=== PATIENT | male | born 1960 | race Caucasian/White ===

== ENCOUNTER → 2016-05-16 | Outpatient (REF) | payer OTHER ==
[~2016-05-16] MED LIST: ACAM0.05 PO; BACITAB3 PO; CEFD1CAP8 PO; DOXY-278 PO; FISH1000 PO; FOLI1TAB2 PO; FURO20TA2 PO; GARL10CA2 PO; GLIP5TAB8 PO; GLUC5TAB3 PO; LASI40TA PO; LEVA500T PO; LEVO500T32 PO; LISI-542 PO; LISI10TA4 PO; MAG400TA PO; MAGN400T5 PO; METF-699 PO; METF500T4 PO; MILK140C PO; ONGL1TAB9 PO; OXAZ10CA PO; OXAZ15CA PO; OXYC-517 PO; OXYC15TA76 PO; PANT40TA2 PO; POTA10CA PO; POTA20TA PO; PRED20TA PO; PRED20TAB PO; PROBCAP4 PO; SITA50TAB PO; SPIR100T PO; SPIR25TA2 PO; SPIR50TA2 PO; TRAD5TAB PO; Thiamine Hcl PO; VITATAB11 PO; VITMTA PO; ZOLO50TA PO
[2016-05-16 10:28] LABS: BASO % 0.5 % (0.0-1.0); EOS # 0.3 K/mm3 (0.0-0.50); LYMPH # 1.4 K/mm3 (1.5-4.5); LYMPH % 19.3 % (24.0-44.0); MEAN CORPUSCULAR HEMOGLOBIN 33.6 pg (27.0-33.0); MEAN CORPUSCULAR HGB CONC 33.2 g/dl (32.0-36.5); MEAN CORPUSCULAR VOLUME 101.1 fl (80.0-96.0); MONO # 0.5 K/mm3 (0.0-0.8); MONO % 7.6 % (0.0-5.0); NEUTROPHILS # 4.3 K/mm3 (1.8-7.7); NEUTROPHILS % 66.5 % (36.0-66.0); WHITE BLOOD COUNT 6.5 K/mm3 (4.0-10.0)
[2016-05-16 10:51] LABS: ALBUMIN 3.6 GM/DL (3.2-5.2); ALBUMIN/GLOBULIN RATIO 0.92 (1.00-1.93); ALKALINE PHOSPHATASE 156 U/L (45-117); ALT/SGPT 51 U/L (12-78); ANION GAP 10 MEQ/L (8-16); AST/SGOT 61 U/L (15-37); BILIRUBIN,TOTAL 1.3 MG/DL (0.2-1.0); BLOOD UREA NITROGEN 20 MG/DL (7-18); CARBON DIOXIDE LEVEL 26 MEQ/L (21-32); CHLORIDE LEVEL 106 MEQ/L (98-107); GLOMERULAR FILTRATION RATE > 60.0 (>56); GLUCOSE, FASTING 172 MG/DL (70-105); POTASSIUM SERUM 4.3 MEQ/L (3.5-5.1); SODIUM LEVEL 142 MEQ/L (136-145); TOTAL PROTEIN 7.5 GM/DL (6.4-8.2)
== END ==
LOC: M LABDRAW1 10:07
PROVIDERS: ATTEND Internal Medicine Gastroenterology
DX: K70.10 Alcoholic hepatitis without ascites (principal)

== ENCOUNTER 2016-06-28 02:36 | Emergency (ER) | payer OTHER ==
[~2016-06-28] VITALS: Ht 180.3 cm; Wt 11.3 kg
[2016-06-28 03:33] LABS: MEAN CORPUSCULAR HEMOGLOBIN 32.4 pg (27.0-33.0); MEAN CORPUSCULAR HGB CONC 33.3 g/dl (32.0-36.5); MEAN CORPUSCULAR VOLUME 97.3 fl (80.0-96.0); RED CELL DISTRIBUTION WIDTH 14.4 % (11.5-14.5); WHITE BLOOD COUNT 4.6 K/mm3 (4.0-10.0)
[2016-06-28 04:17] LABS: ALBUMIN 3.3 GM/DL (3.2-5.2); ALBUMIN/GLOBULIN RATIO 0.75 (1.00-1.93); ALKALINE PHOSPHATASE 250 U/L (45-117); ALT/SGPT 36 U/L (12-78); ANION GAP 9 MEQ/L (8-16); AST/SGOT 93 U/L (15-37); BILIRUBIN,DIRECT 0.8 MG/DL (0.0-0.2); BILIRUBIN,TOTAL 1.3 MG/DL (0.2-1.0); BLOOD UREA NITROGEN 9 MG/DL (7-18); CALCIUM LEVEL 7.6 MG/DL (8.5-10.1); CARBON DIOXIDE LEVEL 27 MEQ/L (21-32); CHLORIDE LEVEL 110 MEQ/L (98-107); CREATININE FOR GFR 0.99 MG/DL (0.70-1.30); GLOMERULAR FILTRATION RATE > 60.0 (>56); GLUCOSE, FASTING 144 MG/DL (70-105); POTASSIUM SERUM 3.5 MEQ/L (3.5-5.1); SODIUM LEVEL 146 MEQ/L (136-145); TOTAL PROTEIN 7.7 GM/DL (6.4-8.2)
[2016-06-28 04:37] LABS: METHADONE URINE NEGATIVE (NEGATIVE)
[2016-06-28] MEDS ORDERED: SPIRONOLACTONE 50 MG TAB NG SCH (09:00)
[2016-06-28] MEDS ORDERED: SPIRONOLACTONE 50 MG TAB PO SCH (09:00)
[2016-06-28] MEDS ORDERED: glipiZIDE (GLUCOTROL) 5 MG TAB PO ONE (09:30)
[2016-06-28] MEDS ORDERED: FUROSEMIDE 20 MG TAB PO ONE (09:30)
[2016-06-28] MEDS ORDERED: metFORMIN XR 500MG TAB *GLUCOPHAGE XR PO ONE (09:30)
[2016-06-28] MEDS ORDERED: PANTOPRAZOLE 40MG TAB (PROTONIX) PO ONE (09:30)
[2016-06-28] MEDS ORDERED: ONGLYZA 5 MG PO SCH (10:15)
[2016-06-28] MEDS ORDERED: SPIRONOLACTONE 50 MG TAB PO ONE (11:00)
[2016-06-28] MEDS ORDERED: OXAZEPAM 15 MG CAP PO ONE ×3 (13:45→15:45)
[2016-06-28] MEDS ORDERED: OXAZ30CA2 PO ×3 (15:12→15:31)
[2016-06-28 15:58] VITALS: BP 144/81
== END 2016-06-28 16:00 | disposition home or self-care (01) ==
LOC: M ED 08:40
DX: F10.120 Alcohol abuse with intoxication, uncomplicated (principal); K70.10 Alcoholic hepatitis without ascites; D69.6 Thrombocytopenia, unspecified; I10 Essential (primary) hypertension; E11.9 Type 2 diabetes mellitus without complications; Z79.899 Other long term (current) drug therapy; Z79.84 Long term (current) use of oral hypoglycemic drugs
CPT/HCPCS: 36415; 80048; 80076; 80306; 84443; 85027; 99285; G0480

== ENCOUNTER → 2016-08-03 | Outpatient (REF) ==
[~2016-08-03] MED LIST changes: +OXAZ30CA2 PO
== END ==
LOC: M LAB 15:25